=== PATIENT | female | born 1990 | race Caucasian/White ===

== ENCOUNTER 2018-10-04 12:54 | Emergency (ER) | payer OTHER ==
[~2018-10-04] VITALS: Ht 160 cm; Wt 55.0 kg
[~2018-10-04 12:54] MED LIST: ACET-2158 PO; ASC500 PO; CEPH-443 PO; FER325 PO; NITR100C6 PO; PRENAT PO
[2018-10-04] MEDS ORDERED: SOD CHLORIDE 0.9% 1,000 ML IV STA (13:08)
[2018-10-04 13:12] VITALS: Ht 160 cm; Wt 55.0 kg
--- NOTE | 2018-10-04 13:51 | ERD ---
ER Documentation Chief Complaint Chief Complaint BIB RA FOR EVAL OF SYNCOPAL EPISODE. 3 MOS HPI This is a 28-year-old female 3 para 2 who presents to the emergency department after she had a brief transient loss of consciousness, with loss of postural tone and complete spontaneous recovery after 20 seconds. The patient states she did not eat breakfast and was pushing a shopping cart with her 2 children and boyfriend when she suddenly felt very lightheaded and dizzy. The patient denied a headache. After the syncope episode she stated she was lying on the floor but stated she did not hit her head as her boyfriend was there to catch her. She indicates that this is never happened in the past. She denies any chest pain. She has no shortness of breath at rest or exertion. She denies any swelling of her lower extremities. She is receiving care at [facility] where her HOSPICE ENTRANCE ATTENDANT works. She is taking vitamins. She denies any abdominal pain and no vaginal bleeding. When EMS arrived they stated the patient was hypotensive with a blood pressure 70/50 mmHg. They did establish IV and she received roughly 250 cc of fluid in route to the hospital. Her blood pressure had improved to a systolic of 100. The patient at this time states she has no symptoms of weakness lightheadedness or headache. No recent cough. She denies any neck pain. ROS All systems reviewed and are negative except as per history of present illness. Medications Home Meds Active Scripts Cephalexin* (Keflex*) 500 Mg Capsule, 500 MG PO QID, #20 CAP Prov:CHAU MOCK MD 07/21/14 Nitrofurantoin Monohyd Macrocr (Macrobid) 100 Mg Capsr, 100 MG PO BID, #10 TAB Prov:CHAU MOCK MD 07/21/14 Ferrous Sulfate* (Ferrous Sulfate*) 325 Mg Tabec, 325 MG PO BID, #60 TAB 2 Refills Prov:CHAU MOCK MD 07/21/14 Ascorbic Acid (Vitamin C) 500 Mg Tab, 500 MG PO BID, #60 TAB 2 Refills Prov:CHAU MOCK MD 07/21/14 Acetaminophen (TYLENOL 325 MG TAB) 325 Mg Tab, 650 MG PO Q6H PRN for PAIN LEVEL 1-3 OR FEVER, #60 TAB Prov:CHAU MOCK MD 07/21/14 Reported Medications Multivit/Min/Fol Ac/Iron/Pren* ( S*) 1 Tab Tab, 1 TAB PO DAILY, TAB 07/17/14 Allergies Allergies: Coded Allergies: aspirin (Verified Adverse Reaction, Mild, STOMACH UPSET, 07/17/14) PMhx/Soc History of Surgery: No Anesthesia Reaction: No Hx Neurological Disorder: No Hx Respiratory Disorders: No Hx Cardiac Disorders: No Hx Psychiatric Problems: No Hx Miscellaneous Medical Probl: No Hx Alcohol Use: No Hx Substance Use: No Hx Tobacco Use: No Smoking Status: Never smoker Physical Exam Vitals Vital Signs Date Temp Pulse Resp B/P (MAP) Pulse Ox O2 O2 Flow FiO2 Time Delivery Rate 10/04/18 87 18 92/60 (71) 97 Room Air 14:29 10/04/18 98.1 88 16 91/57 (68) 99 13:12 Physical Exam Constitutional:Well-developed. Well-nourished. HEENT:Normocephalic. Atraumatic.no nasal septal hematoma. No hemotympanum pupils were equal round reactive to light. Dry mucous membranes.No tonsillar exudates. Neck: No nuchal rigidity. No lymphadenopathy. No posterior cervical spine tenderness or step-offs. Respiratory: Not using accessory muscles of respiration.Lungs were clear to auscultation bilaterally. No rhonchi. No rales. No wheezing. Cardiovascular: Regular rate regular rhythm.No murmurs. No rubs were appreciated.S1, S2 normal. Distal pulses are palpable 2+ bilaterally. GI: Abdomen was soft. Gravid uterus.. Non Distended. No pulsatile abdominal masses or bruits. No rebound. No guarding. Bowel sounds were present and normal. Muscle skeletal: Full range of motion of both the upper and lower extremities bilaterally.Normal muscle tone.No assymetrical calf tenderness or swelling. Skin: No petechia, no purpura. No lesions on the palms or the soles of the feet. No maculopapular rash. NEURO: Patient was alert, awake, orientated x3.No facial droop. Gait observed and normal with no ataxia.Speech had regular rate and rhythm. No focal neurological deficits. Result Diagram: 10/04/18 1313 10/04/18 1313 Results 24 hrs Laboratory Tests Test 10/04/18 13:13 3/3/19 15:38 White Blood Count 7.2 10^3/ul Red Blood Count 4.10 10^6/ul Hemoglobin 11.5 g/dl Hematocrit 34.9 % Mean Corpuscular Volume 85.1 fl Mean Corpuscular Hemoglobin 28.0 pg Mean Corpuscular Hemoglobin Concent 33.0 g/dl Red Cell Distribution Width 12.7 % Platelet Count 276 10^3/UL Mean Platelet Volume 9.0 fl Immature Granulocytes % 0.400 % Neutrophils % 62.6 % Lymphocytes % 30.4 % Monocytes % 5.7 % Eosinophils % 0.6 % Basophils % 0.3 % Nucleated Red Blood Cells % 0.0 /100WBC Immature Granulocytes # 0.030 10^3/ul Neutrophils # 4.5 10^3/ul Lymphocytes # 2.2 10^3/ul Monocytes # 0.4 10^3/ul Eosinophils # 0.0 10^3/ul Basophils # 0.0 10^3/ul Nucleated Red Blood Cells # 0.0 10^3/ul Prothrombin Time 13.3 Sec Prothrombin Time Ratio 1.0 INR International Normalized Ratio 1.00 Activated Partial Thromboplast Time 24.1 Sec Sodium Level 139 mmol/L Potassium Level 3.4 mmol/L Chloride Level 107 mmol/L Carbon Dioxide Level 22 mmol/L Anion Gap 10 Blood Urea Nitrogen 13 mg/dl Creatinine 0.56 mg/dl Est Glomerular Filtrat Rate mL/min > 60 mL/min Glucose Level 93 mg/dl Calcium Level 9.5 mg/dl Total Bilirubin 0.2 mg/dl Direct Bilirubin 0.00 mg/dl Indirect Bilirubin 0.2 mg/dl Aspartate Amino Transf (AST/SGOT) 21 IU/L Alanine Aminotransferase (ALT/SGPT) 11 IU/L Alkaline Phosphatase 39 IU/L Total Protein 6.8 g/dl Albumin 4.0 g/dl Globulin 2.80 g/dl Albumin/Globulin Ratio 1.42 Urine Color YELLOW Urine Clarity CLOUDY Urine pH 5.0 Urine Specific [place] 1.021 Urine Ketones 1+ mg/dL Urine Nitrite POSITIVE mg/dL Urine Bilirubin NEGATIVE mg/dL Urine Urobilinogen NEGATIVE mg/dL Urine Leukocyte Esterase NEGATIVE Cody/ul Urine Microscopic RBC 1 /HPF Urine Microscopic WBC 6 /HPF Urine Squamous Epithelial Cells MODERATE /HPF Urine Bacteria FEW /HPF Urine Mucus MANY /HPF Urine Hemoglobin NEGATIVE mg/dL Urine Glucose NEGATIVE mg/dL Urine Total Protein NEGATIVE mg/dl Current Medications Medications Dose Sig/Mack Start Time Status Last (Trade) Ordered Route PRN Stop Time Admin Dose Reason Admin Sodium 1,000 ml @ Q1H STAT 10/04/18 DC 10/04/18 Chloride 1,000 mls/hr IV 13:08 10/04/18 13:58 14:07 Procedures/MDM The patient presented to the emergency department with a transient loss of consciousness with loss of postural tone, suggestive of a syncope episode. The differential diagnosis of syncope is vast but my workup considered common benign disorders to life-threatening processes. Therefore my differential diagnosis included but was not limited to reflex-mediated syncope such as vasovagal or carotid sinus syncope from coughing, sneezing, micturition, or GI stimulation (eg, defecation). Other etiologies in my workup included orthostatic hypotension which could cause syncope from an abrupt drop in venous return to heart from vol ume depletion. An EKG and cardiac enzymes were obtained to rule out cardiac arrhythmias or ischemia. Cardiopulmonary disease such as valvular disease, hypertrophic cardiomyopathy, pericardial tamponade, or pulmonary embolism were considered as a factor causing the patients syncope episode. The patient had no difference in blood pressure in both arms that could suggest aortic dissection or subclavian steal syndrome. Rectal exam was negative for fecal occult blood that could suggest GI bleeding. Ancillary laboratory work was obtained to evaluate for metabolic or electrolyte abnormalities. The patient had no witnessed brief tonic movements that could suggest postictal confusion. The patient was placed on a monitor and storage bin tender, continuous pulse oximetry and IV access established by nursing staff. The patient was hypotensive given IV fluids. Her blood pressure and significant improved. Given that the patient is and had a syncope was I do feel is necessary to obtain an ultrasound of the pelvis which indicated the following: Single live intrauterine with an estimated gestational age of 12 weeks and 1 day(s), based on ultrasound measurements. CLARISSE based on ultrasound measurements is 04/17/2019. Complex hemorrhagic right ovarian cyst. Right ovarian Doppler flow noted. The patient was refusing any analgesic medication. The patient had no signs of increased intracranial pressure or a pulmonary embolism. Therefore I did not feel is necessary to obtain any further diagnostic imaging at this time. Observation Note: Time: 4 hours Family Hx: No Hypertension Evaluation: Multiple exams showed improving symptoms and no evidence of worsening of her symptoms therefore I felt the patient was safe to be discharged home follow-up with her HOSPICE ENTRANCE ATTENDANT. The patient was discharged home in fair condition. They were instructed to return to the emergency department at any time if there was any worsening of their condition. The patient stated they would follow up with their PCP in the next 24-48 hours to initiate a suitable medication regimen under the care of their PCP as well as to allow their PCP to monitor any drug reactions. The patient was discharged home with prescriptions after they gave informed consent to the new medication. They were also fully informed by myself on the adverse effects and adverse drug interactions in order to provide adequate safeguards to prevent possible adverse reactions to medications. Departure Diagnosis: Primary Impression: Vasovagal syncope Additional Impression: Ovarian cyst Condition: GUILLERMINA Pa MD Oct 04, 2018 13:50
[2018-10-04 16:43] VITALS: BP 97/52; PULSE 77; RESP 18
== END 2018-10-04 16:45 | disposition home or self-care (01) ==
LOC: E/R 12:54
DX: O99.89 Other specified diseases and conditions complicating pregnancy, childbirth and the puerperium (principal); N83.201 Unspecified ovarian cyst, right side; O34.81 Maternal care for other abnormalities of pelvic organs, first trimester; R55 Syncope and collapse; Z3A.12 12 weeks gestation of pregnancy
CPT/HCPCS: 36415; 76801; 80053; 81001; 85025; 85610; 85730; 93005; J7030; Z7502

== ENCOUNTER 2019-02-22 14:35 | Outpatient (CLI) | payer OTHER ==
[~2019-02-22] VITALS: Ht 160 cm; Wt 59.0 kg
[2019-02-22 14:58] VITALS: Ht 160 cm; Wt 59.0 kg
--- NOTE | 2019-02-22 16:09 | PN ---
Triage Information Date/Time Reason for visit: Weeks of Gestation 32.2 /Para Results/Medications Results 24 hrs Laboratory Tests Test 02/22/19 15:40 02/22/19 15:53 Urine Color YANDY Urine Clarity CLOUDY A Urine pH 6.0 Urine Specific [place] 1.015 Urine Ketones 1+ H Urine Nitrite NEGATIVE Urine Bilirubin NEGATIVE Urine Urobilinogen 1+ H Urine Leukocyte Esterase 2+ H Urine Microscopic RBC 4 Urine Microscopic WBC > 182 H Urine Squamous Epithelial Cells MODERATE Urine Bacteria MODERATE Urine Mucus FEW A Urine Hemoglobin 1+ H Urine Glucose NEGATIVE Urine Total Protein 1+ H White Blood Count Pending Red Blood Count Pending Hemoglobin Pending Hematocrit Pending Mean Corpuscular Volume Pending Mean Corpuscular Hemoglobin Pending Mean Corpuscular Hemoglobin Concent Pending Red Cell Distribution Width Pending Platelet Count Pending Mean Platelet Volume Pending Assessment/Plan Patient with complaints of weakness and dizziness. Notes that she has had a history of such episodes in the past. Denies any vaginal bleeding. Notes some leakage of fluid. Vitals with hypotension noted no tachycardia, orthostatic blood pressures within normal limits Abdomen gravid Extremities nontender to palpation We will obtain urinalysis, CMP, CBC, wet mount and nitrazine. If nitrazine is positive we will send a ROM plus. If all work-up is negative, the patient will be discharged to home and she has a follow-up scheduled on 05/01/2019 MITCHELL SALEEM MD Feb 22, 2019 16:09
--- NOTE | 2019-02-22 18:16 | TRIAGE ---
OB Triage Datetime Report Generated by CPN: 02/22/2019 18:16 Datetime: 02/22/2019 17:59 Stage of : OB Triage Maternal Assessment Level of Consciousness: Keenly Alert, Responsive DTR's/Clonus: DTRs 1+ Headache: Denies Breath Sounds, Left: Clear and Equal Breath Sounds, Right: Clear and Equal Nausea/Vomiting: Denies RUQ Epigastric Pain: Denies Labor Evaluation Frequency: NONE Monitor Mode: External Resting Tone [place]: Relaxed Heart Rate FHR Baseline Rate: 135 Monitor Mode: External US Variability: Moderate 6-25 bpm Accelerations: 15X15 Decelerations: None Category: Category I Pain Assessment Pain Scale: 0 Pain Presence: None/Denies Pain Type: N/A Pain Goal: 3 Vaginal Exam Membrane Status: Intact Datetime: 02/22/2019 16:59 Maternal Assessment Level of Consciousness: Keenly Alert, Responsive DTR's/Clonus: DTRs 1+ Headache: Denies Blurred Vision: No Respiratory Effort: Unlabored Breath Sounds, Left: Clear and Equal Breath Sounds, Right: Clear and Equal Nausea/Vomiting: Denies RUQ Epigastric Pain: Denies Facial Edema: None Labor Evaluation Frequency: NONE Monitor Mode: External Resting Tone [place]: Relaxed Heart Rate FHR Baseline Rate: 135 Monitor Mode: External US Variability: Moderate 6-25 bpm Accelerations: 15X15 Decelerations: None Category: Category I Pain Assessment Pain Scale: 0 Pain Presence: None/Denies Pain Type: N/A Pain Goal: 3 Vaginal Exam Membrane Status: Intact Datetime: 02/22/2019 16:00 Stage of : OB Triage Maternal Assessment Level of Consciousness: Keenly Alert, Responsive DTR's/Clonus: DTRs 1+ Headache: Denies Breath Sounds, Left: Clear and Equal Breath Sounds, Right: Clear and Equal Nausea/Vomiting: Denies RUQ Epigastric Pain: Denies Labor Evaluation Frequency: NONE Monitor Mode: External Resting Tone [place]: Relaxed Heart Rate FHR Baseline Rate: 135 Monitor Mode: External US Variability: Moderate 6-25 bpm Accelerations: 15X15 Decelerations: None Pain Assessment Pain Scale: 0 Pain Presence: None/Denies Pain Type: N/A Pain Goal: 3 Vaginal Exam Membrane Status: Intact Datetime: 02/22/2019 15:00 Stage of : OB Triage Maternal Assessment Level of Consciousness: Keenly Alert, Responsive DTR's/Clonus: DTRs 1+ Headache: Denies Breath Sounds, Left: Clear and Equal Breath Sounds, Right: Clear and Equal Nausea/Vomiting: Denies RUQ Epigastric Pain: Denies Labor Evaluation Frequency: NONE Monitor Mode: External Resting Tone [place]: Relaxed Heart Rate FHR Baseline Rate: 135 Monitor Mode: External US Variability: Moderate 6-25 bpm Accelerations: 15X15 Decelerations: None Category: Category I Pain Assessment Pain Scale: 0 Pain Presence: None/Denies Pain Type: N/A Pain Goal: 3 Vaginal Exam Membrane Status: Intact Datetime: 02/22/2019 14:41 EGA: 31.2 Datetime: 02/22/2019 14:25 Assessment Type: Triage Time of Arrival: 02/22/2019 14:25 Arrived By: Ambulatory Arrived From: Home Chief Complaint: PT CAME IN C/O DIZZINESS, CRAMPING AND WEAK Movement: Present Contractions: Denies/Absent Rupture of Membranes: Denies Vaginal Bleeding: None Vaginal Discharge: Denies Recent Sexual Intercouse: Denies Abdominal Trauma: Not Applicable Patient Complaints: Cramping; Dizziness Additional Patient Complaints: NONE Time Provider Notified: 02/22/2019 14:56 Provider Notified: MILESTONE Maternal Assessment Level of Consciousness: Keenly Alert, Responsive DTR's/Clonus: DTRs 2+; No Clonus Headache: Denies Blurred Vision: No Respiratory Effort: Unlabored; Regular Rhythm; Equal Expansion Breath Sounds, Left: Clear and Equal Breath Sounds, Right: Clear and Equal Nausea/Vomiting: Denies RUQ Epigastric Pain: Denies Lower Extremities Edema: None Degree: None Upper Extremities Edema: None Degree: None Facial Edema: None Fall Risk Assessment History of Falling: (0) No Secondary Diagnosis: (0) No Ambulatory Aid: (0) Bedrest/Nurse Assist IV Therapy: (0) No Gait: (0) Normal/Bedrest/Immobile Mental Status: (0) Oriented to Own Ability Fall Score: 0 Fall Risk Score Definition: No Risk: No action required
== END 2019-02-22 18:19 | disposition home or self-care (01) ==
LOC: L-D 14:35 → OBT 14:35
PROVIDERS: ATTEND Obstetrics & Gynecology
DX: O26.893 Other specified pregnancy related conditions, third trimester (principal); Z3A.32 32 weeks gestation of pregnancy; R42 Dizziness and giddiness
CPT/HCPCS: 80053; 81001; 85025; 87210; Z7500; G0463

== ENCOUNTER 2019-03-30 09:36 | Inpatient (IN) | payer OTHER ==
[~2019-03-30] VITALS: Ht 160 cm; Wt 61.2 kg
[~2019-03-30 09:36] MED LIST changes: -ACET-2158 PO; -ASC500 PO; -CEPH-443 PO; -NITR100C6 PO
[2019-03-30] MEDS ORDERED: AMPICILLIN 2 GM/NS (PMX) 100 ML ONE (10:43)
[2019-03-30 10:48] VITALS: Ht 160 cm; Wt 61.2 kg
[2019-03-30] MEDS: LACTATED RINGER'S 1,000 ML IV SCH ×2 (10:58→14:02)
[2019-03-30] MEDS ORDERED: MISOPROSTOL 200 MCG TAB PR PRN ×2 (11:00→18:00)
[2019-03-30] MEDS ORDERED: OXYTOCIN 30 UNITS/LR 500 ML IV PRN ×2 (11:00→18:00)
[2019-03-30] MEDS ORDERED: BUTORPHANOL 2 MG INJ IV PRN (11:00)
[2019-03-30] MEDS ORDERED: LIDOCAINE 1% (MPF) 30 ML INJ INJ PRN (11:00)
[2019-03-30] MEDS ORDERED: OXYTOCIN 30 UNITS/LR 500 ML IV SCH ×3 (11:00→17:46)
[2019-03-30] MEDS ORDERED: AMPICILLIN 2 GM/NS (PMX) 100 ML IV ONE (11:00)
[2019-03-30] MEDS ORDERED: CARBOPROST 250 MCG INJ IM PRN ×2 (11:00→18:00)
[2019-03-30] MEDS ORDERED: METHYLERGONOVINE 0.2 MG INJ IM PRN ×2 (11:00→18:00)
[2019-03-30] MEDS ORDERED: AMPICILLIN 1 GM/NS (PMX) 50 ML IV SCH (14:00)
[2019-03-30] MEDS ORDERED: LACTATED RINGER'S 1,000 ML IV ONE (14:30)
[2019-03-30] MEDS: IBUPROFEN 600 MG TAB PO SCH (17:58)
[2019-03-30] MEDS ORDERED: WITCH HAZEL/GLYCERIN PAD PR PRN (18:00)
[2019-03-30] MEDS ORDERED: ZOLPIDEM 5 MG TAB PO PRN (18:00)
[2019-03-30] MEDS ORDERED: OXYCODONE/ASPIRIN (4.88/325) TAB PO PRN (18:00)
[2019-03-30] MEDS ORDERED: LANOLIN HPA 1 PKT TOP PRN (18:00)
[2019-03-30] MEDS ORDERED: NACL 0.9% 3 ML SYG IV SCH (18:00)
[2019-03-30] MEDS ORDERED: SENNA/DOCUSATE NA (8.6MG/50MG) TAB PO PRN (18:00)
[2019-03-30] MEDS ORDERED: BENZOCAINE 20% 56 ML SPRAY TOP PRN (18:00)
[2019-03-30 19:51] VITALS: BP 109/62; PULSE 66; RESP 20
[2019-03-30 20:30] VITALS: BP 109/62; PULSE 66; RESP 20
[2019-03-30] MEDS: SENNA/DOCUSATE NA (8.6MG/50MG) TAB PO SCH (22:42)
[2019-03-31] VITALS (7 sets, daily range): BP systolic 84–99; BP diastolic 51–60; PULSE 62–92; RESP 16–20
[2019-03-31] MEDS: IBUPROFEN 600 MG TAB PO SCH ×4 (00:40→18:56)
[2019-03-31] MEDS: SENNA/DOCUSATE NA (8.6MG/50MG) TAB PO SCH ×2 (10:06→21:24)
[2019-04-01] MEDS: IBUPROFEN 600 MG TAB PO SCH ×3 (00:35→13:30)
[2019-04-01 03:00] VITALS: BP 100/56; PULSE 60; RESP 18
[2019-04-01 08:45] VITALS: BP 92/55; PULSE 54; RESP 16
[2019-04-01] MEDS ORDERED: DIPHTH/TET/ACEL PERTUSS (ADULT) 0.5 ML VIAL IM* ONE (09:00)
[2019-04-01] MEDS: SENNA/DOCUSATE NA (8.6MG/50MG) TAB PO SCH (09:21)
== END 2019-04-01 15:50 | disposition home or self-care (01) | DRG 807 ==
LOC: OBT 09:36 → L-D 09:38 → OBT 09:45 → L-D 10:01 → PP1 19:39
PROVIDERS: ADMIT Obstetrics & Gynecology; ATTEND Obstetrics & Gynecology
PROC: 10E0XZZ Delivery of Products of Conception, External Approach (ICD-10-PCS; principal; 2019-03-30)
PROC: 3E033VJ Introduction of Other Hormone into Peripheral Vein, Percutaneous Approach (ICD-10-PCS; 2019-03-30)
DX: O60.13X0 Preterm labor second trimester with preterm delivery third trimester, not applicable or unspecified (principal); O69.81X0 Labor and delivery complicated by cord around neck, without compression, not applicable or unspecified; O76 Abnormality in fetal heart rate and rhythm complicating labor and delivery; O99.02 Anemia complicating childbirth; Z3A.36 36 weeks gestation of pregnancy; Z37.0 Single live birth
CPT/HCPCS: 76815; 80307; 85025; 85610; 85730; 86592; 86703; 86762; 86850; 86900; 86901; 87340; 99464; G0463; J0290; J0595; J2590; J7120